=== PATIENT | male | born 1985 | race African-American/Black ===

== ENCOUNTER 2018-04-07 17:11 | Emergency (ER) | payer SELFPAY ==
[~2018-04-07] VITALS: Ht 162.6 cm; Wt 60.2 kg
[2018-04-07 17:21] VITALS: BP 158/90; PULSE 91; RESP 18; TEMP 98.9; O2SAT 98
[2018-04-07] MEDS ORDERED: PENI500T PO (17:44)
--- NOTE | 2018-04-07 17:45 | PD ---
HPI Chief Complaint: Cold / Flu Symptoms Time Seen by Provider: 17:30 Travel History International Travel<30 days: No Contact w/Intl Traveler<30days: No Traveled to known affect area: No History of Present Illness HPI 32-year-old male here with sore throat and fever 2 days. Reports pain with swallowing but does not endorse difficulty swallowing. Able to eat, drink, swallow normally. No change in voice. Symptom severity is moderate. No alleviating factors. PFSH Past Medical History Medical History: Denies Significant Hx Social History Tobacco Use: No Allergies-Medications (Allergen,Severity, Reaction): Coded Allergies: No Known Allergies (Unverified , 04/07/18) Review of Systems Except as stated in HPI: all other systems reviewed are Neg General / Constitutional: Positive: Fever Eyes: No: Visual changes HENT: Positive: Sore Throat Cardiovascular: No: Chest Pain or Discomfort Respiratory: No: Shortness of Breath Gastrointestinal: No: Abdominal Pain Physical Exam Narrative GENERAL: Alert and well-appearing 32-year-old male SKIN: Warm and dry. HEAD: Normocephalic. EYES: No injection or drainage. ENT: Notable pharyngeal erythema with moderate tonsillar hypertrophy and exudate. Uvula is midline. Airways patent. Normal phonation. NECK: Supple, trachea midline. + Mild cervical lymphadenopathy CARDIOVASCULAR: Regular rate and rhythm. No murmur appreciated RESPIRATORY: Breath sounds equal bilaterally. No accessory muscle use. Data Data Last Documented VS Vital Signs Date Time Temp Pulse Resp B/P (MAP) Pulse Ox O2 Delivery O2 Flow Rate FiO2 04/07/18 17:21 98.9 91 18 158/90 (112) 98 MDM Medical Decision Making Medical Screen Exam Complete: Yes Emergency Medical Condition: Yes Differential Diagnosis Strep pharyngitis, viral pharyngitis, mononucleosis, tonsillar abscess Narrative Course 32-year-old male with exudative tonsillitis. He is nontoxic appearing. His airways patent. He will be treated with penicillin. Diagnosis Primary Impression: Tonsillitis Referrals: Primary Care Physician Additional Instructions: Medication as directed. Tylenol or ibuprofen for fever and pain. Stay well hydrated. Scripts Penicillin V Potassium (Penicillin V Potassium) 500 Mg Tab 500 MG PO BID for Infection for 10 Days, #20 TAB 0 Refills Prov: Holli Lion 04/07/18 Disposition: 01 DISCHARGE HOME Condition: Stable Holli Lion April 07, 2018 17:45
== END 2018-04-07 17:54 | disposition home or self-care (01) ==
LOC: PHEFT 17:11
DX: J03.90 Acute tonsillitis, unspecified (principal); R50.9 Fever, unspecified
CPT/HCPCS: 99283